=== PATIENT | male | born 1995 | race African-American/Black ===

== ENCOUNTER 2017-10-31 00:40 | Emergency (ER) | payer MEDICAID ==
[2017-10-31] MEDS ORDERED: LIDOCAINE 5% (700 MG) TRANSDERMAL ADH..PATCH TP ONE (03:12)
--- NOTE | 2017-10-31 03:23 | ER Document Report ---
HPI - HPI Pain Level: 4 Notes: Patient is a 22-year-old male with no significant past medical history who presents to the ED complaining of having to episodes of chest/epigastric pain after he got done eating around midnight. Patient states that the symptoms have since resolved. He has no other significant cardiopulmonary medical history. He is still urinating normally and having normal bowel moods. He is able to ambulate without dyspnea on exertion or chest pains. Denies any drug allergies. He does not take any medicines daily. Denies any smoking, IV drug use, alcohol involvement. No other concerns or complaints at this time. The pain does not radiate when they occurred. He stated that at that time movement did make his pain worse. Denies any headache, fever, neck pain, URI, sore throat, palpitations, syncope, cough, shortness of breath, wheeze, dyspnea, nausea/vomiting/diarrhea, urinary retention, dysuria, hematuria, numbness/ tingling, muscle paralysis/weakness, or rash. No hormone use, prev dvt/pe, recent surgery/trauma, prolonged immobilization. - ROS Systems Reviewed and Negative: Yes All other systems reviewed and negative - REPRODUCTIVE Reproductive: DENIES: : - DERM Skin Color: Normal, [place] Past Medical History - Social History Smoking Status: Never Smoker Chew tobacco use (# tins/day): No Frequency of alcohol use: None Drug Abuse: None Family History: Reviewed & Not Pertinent Patient has suicidal ideation: No Patient has homicidal ideation: No Pulmonary Medical History: Reports: Hx Asthma Neurological Medical History: Denies: Hx Seizures Renal/ Medical History: Denies: Hx Peritoneal Dialysis - Immunizations Immunizations up to date: Yes Vertical Provider Document - CONSTITUTIONAL Agree With Documented VS: Yes Notes: PHYSICAL EXAMINATION: GENERAL: Well-appearing, well-nourished and in no acute distress. NECK: Normal range of motion, supple without lymphadenopathy Chest: non-tender. LUNGS: Breath sounds clear to auscultation bilaterally and equal. No wheezes rales or rhonchi. HEART: Regular rate and rhythm without murmurs, rubs, gallops. ABDOMEN: Soft, nontender, nondistended abdomen. No guarding, no rebound. No masses appreciated. Normal bowel sounds present. No CVA tenderness bilaterally. (when asked where the pain was, pt pointed to epigastrum). Musculoskeletal: FROM to passive/active. Strength 5+/5. Mil neg. Extremities: No cyanosis, clubbing, or edema b/l. Peripheral pulses 2+. Capillary refill less than 3 seconds. NEUROLOGICAL: Normal speech, normal gait. PSYCH: Normal mood, normal affect. SKIN: Warm, Dry, normal turgor, no rashes or lesions noted. - INFECTION CONTROL TRAVEL OUTSIDE OF THE [place] IN LAST 30 DAYS: No Course - Re-evaluation Re-evalutation: 10/31/17 04:14 Patient is an afebrile, well-hydrated, 22-year-old male who presents to the ED with epigastric/chest pain, unspecified. Vitals are acceptable. PE is otherwise unremarkable. EKG and chest x-ray were unremarkable for any acute pathology. The incident occurred after he was done eating. I suspect that this could be related with acid reflux. Patient is currently asymptomatic. He has no significant tachycardia, tachypnea, or hypoxia. He has no other red flag symptoms. He is PERC negative. No other labs or imaging warranted at this time based on H&P. Low suspicion for any acute abdomen, ACS, PE, pneumothorax, pericarditis, dissection, respiratory compromise, severe dehydration, sepsis, meningitis, or other systemic emergent condition at this time. Patient is aware that his condition can change from initial presentation and he needs to monitor symptoms closely and seek medical attention for any acute changes. Recommend conservative measures for symptoms. Recheck with your PCM in 3-5 days. Return to the ED with any worsening/concerning symptoms otherwise as reviewed in discharge. Patient is in agreement. - Vital Signs Vital signs: Temp Pulse Resp BP Pulse Ox 98.8 F 62 20 124/85 100 10/31/17 01:15 10/31/17 01:15 10/31/17 01:15 10/31/17 01:15 10/31/17 01:15 Discharge - Discharge Clinical Impression: Epigastric pain Chest pain Qualifiers: Chest pain type: unspecified Qualified Code(s): R07.9 - Chest pain, unspecified Condition: Stable Disposition: HOME, SELF-CARE Instructions: Chest Pain of Unclear Cause ([facility]) Additional Instructions: Maintain adequate fluid and food intake tylenol/motrin if needed May try over the counter antacids (i.e. prilosec or zantac/pepcid) Monitor for any worsening symptoms Make sure you are staying hydrated enough to urinate and have normal BM's Recheck with your PCM in 3-5 days Return to the ED with any worsening symptoms and/or development of fever, headache, chest pain, palpitations, syncope, shortness of breath, trouble breathing, abdominal pain, n/v/d, blood in stool/urine, weakness, or other worsening symptoms that are concerning to you. Referrals: [facility] [Provider Group] - Follow up as needed [facility] [Provider Group] - Follow up as needed
--- NOTE | 2017-10-31 04:01 | RADIOLOGY REPORT (SQ) ---
EXAM DESCRIPTION: XR CHEST 2 VIEWS CLINICAL HISTORY: 22 years Male, chest pain COMPARISON: None. FINDINGS: Adequate lung volume, clear parenchyma, normal cardiac silhouette, and intact bony thorax. IMPRESSION: No acute cardiopulmonary findings.
[2017-10-31 04:32] VITALS: BP 126/65
--- NOTE | 2017-10-31 07:34 | EKG REPORT ---
SEVERITY:- NORMAL ECG - SINUS RHYTHM ST ELEV, PROBABLE NORMAL EARLY REPOL PATTERN : Confirmed by: Jeronimo Hummel MD 31-Oct-2017 07:34:02
== END 2017-10-31 04:33 | disposition home or self-care (01) ==
LOC: ER 00:40
DX: R07.9 Chest pain, unspecified (principal); R10.13 Epigastric pain
CPT/HCPCS: 71046; 93005; 93010; 99285